=== PATIENT | male | born 1960 | race Caucasian/White ===

== ENCOUNTER 2017-08-03 07:07 | Day surgery (SDC) | payer BC, OTHER ==
[2017-08-03] MEDS: Lactated Ringers 1,000 ML IV SCH ×2 (07:58→10:52)
[2017-08-03] MEDS ORDERED: cefOXitin 2 GM in Sodium Chloride 0.9% 100 ML IV ONE (08:15)
[2017-08-03] MEDS ORDERED: Ondansetron 4 MG/2 ML SDV IVPUSH ONE (08:30)
[2017-08-03] MEDS ORDERED: Rocuronium 100 MG/10 ML MDV IV ONE (08:30)
[2017-08-03] MEDS ORDERED: Midazolam 1 MG/ML 2 ML SDV IV ONE (08:30)
[2017-08-03] MEDS ORDERED: Lidocaine 2% 100 MG/5 ML Syringe IVPUSH ONE (08:30)
[2017-08-03] MEDS ORDERED: Propofol 1,000 MG/100 ML SDV IV ONE (08:30)
[2017-08-03] MEDS ORDERED: Phenylephrine 1% 10 MG/ML SDV IV ONE (08:30)
[2017-08-03] MEDS ORDERED: fentaNYL 100 MCG/2 ML SDV IV ONE (08:30)
[2017-08-03] MEDS ORDERED: HYDROmorphone 2 MG/ML SDV IV ONE (08:30)
[2017-08-03] MEDS ORDERED: Succinylcholine 200 MG/10 ML MDV IV ONE (08:30)
[2017-08-03] MEDS ORDERED: Metoclopramide 10 MG/2 ML SDV IV ONE (08:30)
[2017-08-03] MEDS ORDERED: Ketorolac 30 MG/ML SDV IVPUSH ONE (08:30)
[2017-08-03] MEDS ORDERED: Bacitracin Oint 28.35 GM Tube TOP ONE ×3 (09:36)
--- NOTE | 2017-08-03 09:57 | PCM.OPNOTE ---
- General Post-Op/Procedure Note Date of Surgery/Procedure: 08/03/17 Operative Procedure(s): excision and fulgeration of meseret-anal condyloma left side Findings: 9x3 cm lesion on left side perianal Pre Op Diagnosis: perianal condyloma Post-Op Diagnosis: Same Anesthesia Technique: General ET Tube Primary Surgeon: Bentley Rhodes Anesthesia Provider: Tea Mejia Pathology: condyloma Complications: None Condition: Good Free Text/Narrative:: see dictation.
[2017-08-03] MEDS ORDERED: Ibuprofen 600 MG Tab PO PRN (10:38)
[2017-08-03] MEDS ORDERED: Acetaminophen/HYDROcodone 325-5 MG Tab PO PRN (10:38)
[2017-08-03] MEDS: Morphine 2 MG/ML Syringe IVPUSH PRN ×2 (10:50→15:51)
[2017-08-03] MEDS ORDERED: Nicotine 21 MG/24 Hr Patch TRDERM SCH (16:00)
--- NOTE | 2017-08-03 17:23 | PCM.SN ---
- Free Text/Narrative Note: Pt would like to go home. discharge orders written.
--- NOTE | 2017-08-05 12:47 | OR ---
DATE OF OPERATION: 08/05/2017 SURGEON: Bentley Rhodes MD PROCEDURE PERFORMED: Excision of anal condylomata, left side of the gluteal cleft. PREOPERATIVE DIAGNOSIS: Anal condylomata. POSTOPERATIVE DIAGNOSIS: Anal condylomata. INDICATIONS FOR PROCEDURE: This is a 56-year-old white male who has had a longstanding history of condyloma acuminatum of the anus. He was referred to me with, what was essentially, bivalve lesions surrounding his anus and measuring 3 cm x 9 cm in length. He was offered and accepted excision. INTRAOPERATIVE FINDINGS: On each side of the patient's gluteal cleft, surrounding the anus, he has a lesion that is roughly 9 cm x 3 cm in its greatest width, one-half of the lesions were excised on the left buttock, as well as areas of fulguration were performed. DESCRIPTION OF PROCEDURE: After an excellent general anesthetic was administered, the patient was placed in prone talib-knife position. Attention was turned to the left side of the buttock, where sharp dissection was carried out along with electrocautery to excise the condylomata from the surrounding tissue. This was taken down to the area of the anus. Specimen was handed off in several pieces. Some exposed condylomata around the anus itself were also fulgurated. He had an area in the superior aspect of the gluteal cleft that was thin enough to respond just to fulguration, and these areas were fulgurated. I terminated the procedure at this point just because of the size of the wound defect. The area was irrigated. Bacitracin ointment was applied as well as Gel- Foam and dressing was applied. The patient was taken to Recovery in a good condition with a plan to bring him back in several weeks to complete the excision. /[id number] /MODL
--- NOTE | 2017-08-06 11:35 | PCM.SN ---
- Free Text/Narrative Note: Pt examined and chart reviewed no change to chart at time of surgery.
== END 2017-08-03 18:05 | disposition home or self-care (01) ==
LOC: FB.SDS 07:07 → FB.MS 10:25 → FB.SDS 18:05
PROVIDERS: ATTEND Surgery
DX: A63.0 Anogenital (venereal) warts (principal); E11.9 Type 2 diabetes mellitus without complications; E55.9 Vitamin D deficiency, unspecified; Z91.018 Allergy to other foods; Z79.84 Long term (current) use of oral hypoglycemic drugs; Z79.899 Other long term (current) drug therapy; Z90.49 Acquired absence of other specified parts of digestive tract; Z98.890 Other specified postprocedural states; F17.210 Nicotine dependence, cigarettes, uncomplicated
CPT/HCPCS: 46924; 82962; A9270; J0330; J0694; J1170; J1885; J2250; J2270; J2370; J2405; J2765; J3010; J7030; J7120; 88305; J3490

== ENCOUNTER 2017-08-06 00:17 | Emergency (ER) | payer OTHER ==
--- NOTE | 2017-08-06 01:15 | PCM.SN ---
- Free Text/Narrative Note: S. pt is sp an excision of anal condylomata from the left gluteal cleft. He has been doing well, his first dressing change was yesterday after a bowel movement. There were no issues. Tonight he went to change his dressing and he noted some bleeding that did not stop. O. there is on small skin bleeder along the lateral edge of the wound. The remainder of the wound body is unremarkable. This was treated with silver nitr A. skin bleeder. P. Continue dressing changes as well as sitz baths and ointment. Keep follow up appt next wednesday.
[2017-08-06] MEDS ORDERED: Morphine 2 MG/ML Syringe IVPUSH PRN (01:20)
[2017-08-06] MEDS ORDERED: Morphine 2 MG/ML Syringe IM PRN (01:21)
== END 2017-08-06 01:37 | disposition home or self-care (01) ==
LOC: FB.ED 00:17
DX: L76.21 Postprocedural hemorrhage of skin and subcutaneous tissue following a dermatologic procedure (principal)
CPT/HCPCS: 96372; 99283; A9270; J2270

== ENCOUNTER 2017-08-24 07:13 | Day surgery (SDC) | payer OTHER ==
[~2017-08-24 07:13] MED LIST: Lactated Ringers 1,000 ML IV SCH; cefOXitin 2 GM in Sodium Chloride 0.9% 100 ML IV ONE
[2017-08-24] MEDS ORDERED: Lactated Ringers 1,000 ML IV SCH ×2 (07:15→10:00)
[2017-08-24] MEDS: Lactated Ringers 1,000 ML IV SCH ×2 (07:57→11:03)
[2017-08-24] MEDS ORDERED: cefOXitin 2 GM Vial IVPUSH ONE (08:00)
[2017-08-24] MEDS ORDERED: Succinylcholine 200 MG/10 ML MDV IV ONE (08:43)
[2017-08-24] MEDS ORDERED: Rocuronium 100 MG/10 ML MDV IV ONE (08:43)
[2017-08-24] MEDS ORDERED: fentaNYL 100 MCG/2 ML SDV IV ONE (08:43)
[2017-08-24] MEDS ORDERED: Lactated Ringers 1,000 ML IV ONE (08:43)
[2017-08-24] MEDS ORDERED: Propofol 200 MG/20 ML SDV IV ONE (08:43)
[2017-08-24] MEDS ORDERED: Midazolam 1 MG/ML 2 ML SDV IV ONE (08:43)
[2017-08-24] MEDS ORDERED: HYDROmorphone 2 MG/ML SDV IV ONE (08:43)
[2017-08-24] MEDS ORDERED: Ketorolac 30 MG/ML SDV IVPUSH ONE (08:43)
[2017-08-24] MEDS ORDERED: Ondansetron 4 MG/2 ML SDV IVPUSH ONE (08:43)
[2017-08-24] MEDS ORDERED: Lidocaine 1% with EPINEPHrine 1:100,000 20 ML MDV INJECT ONE (09:08)
[2017-08-24] MEDS ORDERED: Bupivacaine 0.5% 30 ML SDV INJECT ONE (09:08)
[2017-08-24] MEDS ORDERED: Morphine 4 MG/ML Syringe IVPUSH PRN (09:31)
--- NOTE | 2017-08-24 09:43 | PCM.OPNOTE ---
- General Post-Op/Procedure Note Date of Surgery/Procedure: 08/24/17 Operative Procedure(s): excision and fulgeration of perianal warts Findings: 3x 9 cm area of condylomata on the right butt cheek Pre Op Diagnosis: 3x 9 cm area of condylomata on the right butt cheek Post-Op Diagnosis: 3x 9 cm area of condylomata on the right butt cheek Anesthesia Technique: General ET Tube, Local (8 ml 1 % lido with epi 0.5% buvipicaine) Primary Surgeon: Bentley Rhodes Anesthesia Provider: Chris Stafford Pathology: condylomata EBL in mLs: 1 Complications: None Condition: Good Free Text/Narrative:: see dictation
[2017-08-24] MEDS ORDERED: Naloxone 0.4 MG/ML SDV IVPUSH PRN (09:49)
[2017-08-24] MEDS ORDERED: HYDROmorphone 2 MG/ML SDV IVPUSH PRN (09:49)
[2017-08-24] MEDS ORDERED: HYDROmorphone 2 MG/ML SDV IV PRN (09:49)
[2017-08-24] MEDS ORDERED: fentaNYL 100 MCG/2 ML SDV IVPUSH PRN (09:49)
[2017-08-24] MEDS ORDERED: Albuterol 0.083% 2.5 MG/3 ML Neb Soln NEB PRN (09:49)
[2017-08-24] MEDS ORDERED: Ondansetron 4 MG/2 ML SDV IVPUSH PRN (09:49)
[2017-08-24] MEDS: Insulin Aspart 100 Units/ML 3 ML Pen SUBCUT SCH ×2 (11:03→17:40)
--- NOTE | 2017-08-24 13:04 | OR ---
DATE OF OPERATION: 08/24/2017 SURGEON: Bentley Rhodes MD PROCEDURE PERFORMED: Excision and fulguration of condylomata acuminata of the right gluteal cleft. PREOPERATIVE DIAGNOSIS: Common perianal warts. POSTOPERATIVE DIAGNOSIS: Common perianal warts. INTRAOPERATIVE FINDINGS: There was approximately a 9 x 6 area of wart, triangular shape, of condylomata acuminata involving the right gluteal cleft and perianal area. ANESTHESIA: Total local used 8 mL of 1:1 mixture of 1% lidocaine with epinephrine and 0.5% bupivacaine. DESCRIPTION OF PROCEDURE: After an excellent general anesthetic was administered, the patient was placed in prone talib-knife position, prepped and draped in usual sterile manner, local mixture was used to infiltrate the area just below the tissue. Using a pair of Rodriguez scissors and the tangential incision, the majority of the condylomata were excised in a tangential manner. The bulk of the specimen was submitted in pieces and passed off the field for pathologic evaluation. Several islands of remaining condylomata were then fulgurated and bleeding was controlled with electrocautery. This involve mainly areas at the base of the scrotum as well as of the superior gluteal cleft. Bleeding was controlled with electrocautery. The wound was dressed with Gelfoam, covered with 4x4s, and an ABD. He was taken to recovery room in good condition. /[id number] /MODL
[2017-08-24] MEDS: Acetaminophen/HYDROcodone 325-5 MG Tab PO PRN ×2 (13:29→19:47)
[2017-08-24] MEDS: Nicotine 21 MG/24 Hr Patch TRDERM SCH (13:49)
[2017-08-24] MEDS: Ketorolac 15 MG/ML SDV IVPUSH SCH ×2 (16:15→22:17)
[2017-08-24] MEDS: metFORMIN 1,000 MG Tab PO SCH (17:46)
[2017-08-24] MEDS: Sodium Chloride 0.9% 10 ML Syringe FLUSH PRN ×2 (18:26→22:18)
[2017-08-24] MEDS: Docusate Sodium 100 MG Cap PO SCH (21:28)
[2017-08-25] MEDS: Ketorolac 15 MG/ML SDV IVPUSH SCH ×2 (03:25→09:45)
[2017-08-25] MEDS: Sodium Chloride 0.9% 10 ML Syringe FLUSH PRN ×2 (03:27→09:45)
[2017-08-25] MEDS: metFORMIN 1,000 MG Tab PO SCH (08:10)
[2017-08-25] MEDS: Insulin Aspart 100 Units/ML 3 ML Pen SUBCUT SCH ×2 (08:10→11:29)
[2017-08-25] MEDS: Docusate Sodium 100 MG Cap PO SCH (08:11)
[2017-08-25] MEDS: Nicotine 21 MG/24 Hr Patch TRDERM SCH (08:12)
--- NOTE | 2017-08-25 09:43 | PCM.SURGPN ---
- General Info Date of Service: 08/25/17 POD#: 1 Functional Status: Reports: Pain Controlled, Tolerating Diet, Ambulating - Review of Systems General: Reports: No Symptoms Pulmonary: Reports: Wheezing Cardiovascular: Reports: No Symptoms Gastrointestinal: Reports: No Symptoms - Patient Data Vitals - Most Recent: Last Vital Signs Temp 36.8 C 08/25/17 07:15 Pulse 76 08/25/17 07:15 Resp 20 08/25/17 07:15 BP 117/72 08/25/17 07:15 Pulse Ox 95 08/25/17 07:15 Weight - Most Recent: 84.368 kg I&O - Last 24 Hours: Intake & Output 08/24/17 08/25/17 08/25/17 22:59 06:59 14:59 Intake Total 1360 200 Output Total 900 300 Balance 460 -100 Lab Results Last 24 Hrs: Laboratory Results - last 24 hr 08/24/17 08/24/17 08/25/17 Range/Units 10:37 17:37 06:04 POC Glucose 262 H 276 H 197 H (80-116) mg/dL Med Orders - Current: Current Medications Hydrocodone Bitart/Acetaminophen ([place] 325-5 Mg) 2 tab PO Q4H PRN PRN Reason: Pain (moderate 4-6) Last Admin: 08/24/17 19:47 Dose: 2 tab Docusate Sodium (Colace) 100 mg PO BID [facility] Last Admin: 08/25/17 08:11 Dose: 100 mg Hydroxyzine Pamoate (Vistaril) 50 mg PO Q6H PRN PRN Reason: ASDIRECTED Insulin Aspart (Novolog) 0 unit SUBCUT TIDMEALS [facility] PRN Reason: Protocol Last Admin: 08/25/17 08:10 Dose: 1 units Ketorolac Tromethamine (Toradol) 15 mg IVPUSH Q6H [facility] Last Admin: 08/25/17 03:25 Dose: 15 mg Metformin HCl (Glucophage) 1,000 mg PO BIDMEALS [facility] Last Admin: 08/25/17 08:10 Dose: 1,000 mg Morphine Sulfate (Morphine) 3 mg IVPUSH Q2H PRN PRN Reason: Pain (severe 7-10) Nicotine (Habitrol) 21 mg TRDERM DAILY [facility] Last Admin: 08/25/17 08:12 Dose: 21 mg Sodium Chloride (Saline Flush) 10 ml FLUSH ASDIRECTED PRN PRN Reason: Keep Vein Open Last Admin: 08/25/17 03:27 Dose: 10 ml Discontinued Medications Albuterol (Proventil Neb Soln) 2.5 mg NEB ONETIME PRN PRN Reason: Wheezing Bupivacaine HCl (Marcaine 0.5%) 4 ml INJECT .STK-MED ONE Stop: 08/24/17 09:09 Last Admin: 08/24/17 09:08 Dose: 4 ml Cefoxitin Sodium (Mefoxin) 2 gm IVPUSH ONETIME ONE Stop: 08/24/17 08:01 Last Admin: 08/24/17 08:00 Dose: 2 gm Fentanyl (Sublimaze) 50 mcg IVPUSH Q5M PRN PRN Reason: Pain (severe 7-10) Hydromorphone HCl (Dilaudid) 0.2 mg IVPUSH Q10M PRN PRN Reason: Pain (moderate 4-6) Hydromorphone HCl (Dilaudid) 0.2 mg IV Q10M PRN PRN Reason: Pain (severe 7-10) Lactated Ringer's (Ringers, Lactated) 1,000 mls @ 125 mls/hr IV ASDIRECTED [facility] Lactated Ringer's (Ringers, Lactated) 1,000 mls @ 125 mls/hr IV ASDIRECTED [facility] Lactated Ringer's (Ringers, Lactated) 1,000 mls @ 125 mls/hr IV ASDIRECTED [facility] Last Admin: 08/24/17 11:03 Dose: 125 mls/hr Lactated Ringer's (Ringers, Lactated) 1,000 mls @ 0 mls/hr IV ASDIRECTED [facility] PRN Reason: KVO Lidocaine/Epinephrine (Xylocaine 1% With Epinephrine 1:100,000) 4 ml INJECT .STK-MED ONE Stop: 08/24/17 09:09 Last Admin: 08/24/17 09:08 Dose: 4 ml Naloxone HCl (Narcan) 0.2 mg IVPUSH Q1M PRN PRN Reason: Respiratory Depression Ondansetron HCl (Zofran) 4 mg IVPUSH ONETIME PRN PRN Reason: Nausea/Vomiting Last Admin: 08/24/17 10:05 Dose: 4 mg - Exam Wound/Incisions: Drainage (minimal ). No: Erythema General: Alert, Oriented, Cooperative Lungs: Wheezing Cardiovascular: Regular Rate, Regular Rhythm GI/Abdominal Exam: Normal Bowel Sounds Skin: Warm, Dry, Intact - Problem List & Annotations (1) Type 2 diabetes mellitus SNOMED Code(s): 90634484 Code(s): E11.9 - TYPE 2 DIABETES MELLITUS WITHOUT COMPLICATIONS Status: Acute Current Visit: Yes Qualifiers: Diabetes mellitus complication status: with hyperglycemia Diabetes mellitus vermin exterminator insulin use: without mcc use Qualified Code(s): E11.65 - Type 2 diabetes mellitus with hyperglycemia (2) Anal condyloma SNOMED Code(s): 589329477 Code(s): A63.0 - ANOGENITAL (VENEREAL) WARTS Status: Acute Current Visit : No - Problem List Review Problem List Initiated/Reviewed/Updated: Yes - My Orders Last 24 Hours: Active Orders 24 hr Category Date Time Status Accu Check [Blood Glucose Check, Bedside] [RC] TIDMEALS Care 08/24/17 17:32 Active Ambulate [RC] ,, Care 08/24/17 09:32 Active Dressing Change [Wound Care] [RC] ,16, Care 08/24/17 09:35 Active May Shower [RC] ASDIRECTED Care 08/24/17 09:31 Active Notify Provider Vital Signs [RC] PRN Care 08/24/17 09:32 Active Notify Provider [RC] PRN Care 08/24/17 09:49 Active Oxygen Therapy [RC] PRN Care 08/24/17 09:32 Active RT Incentive Spirometry [RC] Q2HWA Care 08/24/17 09:32 Active Ready for Discharge [RC] PER UNIT ROUTINE Care 08/25/17 09:40 Ordered Vital Signs [RC] Q4H Care 08/24/17 09:31 Active Regular Diet [DIET] Diet 08/24/17 Lunch Ordered Acetaminophen/HYDROcodone [[place] 325-5 MG] Med 08/24/17 09:31 Active 2 tab PO Q4H PRN Docusate Sodium [Colace] Med 08/24/17 21:00 Active 100 mg PO BID Insulin Aspart [NovoLOG] Med 08/24/17 12:00 Active See Protocol SUBCUT TIDMEALS Ketorolac [Toradol] Med 08/24/17 16:00 Active 15 mg IVPUSH Q6H Morphine Med 08/24/17 09:31 Active 3 mg IVPUSH Q2H PRN Nicotine [Habitrol] Med 08/24/17 09:45 Active 21 mg TRDERM DAILY Sodium Chloride 0.9% [Saline Flush] Med 08/24/17 17:28 Active 10 ml FLUSH ASDIRECTED PRN hydrOXYzine Pamoate [Vistaril] Med 08/24/17 09:45 Active 50 mg PO Q6H PRN metFORMIN [Glucophage] Med 08/24/17 18:00 Active 1,000 mg PO BIDMEALS Convert IV to Saline Lock [OM.PC] Routine Oth 08/24/17 17:16 Ordered Patient May [OM.PC] Click to Edit Oth 08/24/17 09:49 Ordered Medication Orders Hydrocodone Bitart/Acetaminophen ([place] 325-5 Mg) 2 tab PO Q4H PRN PRN Reason: Pain (moderate 4-6) Last Admin: 08/24/17 19:47 Dose: 2 tab Admin: 08/24/17 13:29 Dose: 2 tab Docusate Sodium (Colace) 100 mg PO BID [facility] Last Admin: 08/25/17 08:11 Dose: 100 mg Admin: 08/24/17 21:28 Dose: 100 mg Hydroxyzine Pamoate (Vistaril) 50 mg PO Q6H PRN PRN Reason: ASDIRECTED Insulin Aspart (Novolog) 0 unit SUBCUT TIDMEALS [facility] PRN Reason: Protocol Last Admin: 08/25/17 08:10 Dose: 1 units Admin: 08/24/17 17:40 Dose: 3 units Admin: 08/24/17 11:03 Dose: 3 units Ketorolac Tromethamine (Toradol) 15 mg IVPUSH Q6H [facility] Last Admin: 08/25/17 03:25 Dose: 15 mg Admin: 08/24/17 22:17 Dose: 15 mg Admin: 08/24/17 16:15 Dose: 15 mg Metformin HCl (Glucophage) 1,000 mg PO BIDMEALS [facility] Last Admin: 08/25/17 08:10 Dose: 1,000 mg Admin: 08/24/17 17:46 Dose: 1,000 mg Morphine Sulfate (Morphine) 3 mg IVPUSH Q2H PRN PRN Reason: Pain (severe 7-10) Nicotine (Habitrol) 21 mg TRDERM DAILY [facility] Last Admin: 08/25/17 08:12 Dose: 21 mg Admin: 08/24/17 13:49 Dose: 21 mg Sodium Chloride (Saline Flush) 10 ml FLUSH ASDIRECTED PRN PRN Reason: Keep Vein Open Last Admin: 08/25/17 03:27 Dose: 10 ml Admin: 08/24/17 22:18 Dose: 10 ml Admin: 08/24/17 18:26 Dose: 10 ml - Assessment Assessment (Free Text/Narrative):: ready for discharge - Plan Plan (Free Text/Narrative):: d/c to home
--- NOTE | 2017-08-26 09:59 | PCM.SN ---
- Free Text/Narrative Note: AT time of the procedure there were no changes to the H+P
== END 2017-08-25 13:30 | disposition home or self-care (01) ==
LOC: FB.SDS 07:13 → FB.MS 12:25 → FB.SDS 08-25 13:30
PROVIDERS: ATTEND Surgery
DX: A63.0 Anogenital (venereal) warts (principal); E11.9 Type 2 diabetes mellitus without complications; E55.9 Vitamin D deficiency, unspecified; G89.29 Other chronic pain; M54.5 Low back pain; Z91.018 Allergy to other foods; Z79.84 Long term (current) use of oral hypoglycemic drugs; Z79.899 Other long term (current) drug therapy; Z90.49 Acquired absence of other specified parts of digestive tract; F17.210 Nicotine dependence, cigarettes, uncomplicated
CPT/HCPCS: 17110; 36415; 80048; 82962; 83036; 85025; 88305; A9270; J0330; J0694; J1170; J1885; J2250; J2405; J2704; J3010; J7050; J7120

== ENCOUNTER 2022-10-16 16:32 | Emergency (ER) | payer OTHER ==
[2022-10-16] MEDS ORDERED: Sodium Chloride 0.9% 10 ML Syringe FLUSH PRN (17:15)
[2022-10-16] MEDS ORDERED: Sodium Chloride 0.9% 1,000 ML IV ONE ×2 (17:15→18:53)
[2022-10-16 17:52] LABS: ESTIMATED GFR 76 mL/min (>60)
[2022-10-16 18:19] LABS: BASE EXCESS VENOUS,POC 0 mmol/L (-2 - 3+); PCO2 VENOUS,POC 46 mmHg (41-51); PH VENOUS,POC 7.36 pH Units (7.32-7.43)
[2022-10-16] MEDS ORDERED: Glucagon,Human Recombinant 1 MG Vial IM PRN (18:53)
[2022-10-16] MEDS ORDERED: Insulin Regular, Human 100 Units/ML 3 ML Vial IV ONE (18:53)
[2022-10-16] MEDS ORDERED: 50% Dextrose in Water 50 ML Syringe IVPUSH PRN (18:53)
== END 2022-10-16 21:00 | disposition home or self-care (01) ==
LOC: FB.ED 16:32
DX: E11.65 Type 2 diabetes mellitus with hyperglycemia (principal); E86.0 Dehydration; Z79.84 Long term (current) use of oral hypoglycemic drugs; Z91.018 Allergy to other foods; Z72.0 Tobacco use; Z91.14 Patient's other noncompliance with medication regimen
CPT/HCPCS: 36415; 80053; 81001; 82947; 83605; 83735; 85025; 86140; 96360; 96361; 99283-25; 99284; J1815-GY; J7030